=== PATIENT | female | born 1935 | race Caucasian/White ===

== ENCOUNTER 2017-02-23 21:29 | Inpatient (IN) | payer MEDICARE ==
--- NOTE | ~2017-02-23 | DS ---
Discharge Summary [facility] [address] [facility] [place]. [address] NAME: JU MIRANDA : 33 STATUS : DIS IN PAT#: [id number] AGE: 81 ADM/REG DATE : 02/23/17 MR#: [id number] REPORT SERV DATE: 03/11/17 DICTATED BY: SAMREEN GONZALEZ DATE: 03/10/17 REPORT STATUS : Draft TRANSCRIBED BY: MODMann DATE: 03/10/17 Data Collection from hospitalization DISCHARGE DIAGNOSES: 1. 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 2. Hypertension. 3. Diabetes. 4. History of breast cancer. 5. Elevated cholesterol. 6. Chronic back pain. 7. Left bundle-branch block. CONSULTATIONS: JASBIR Greer. Dr. Chavo Chang. PROCEDURES PERFORMED: 1. Exploratory laparotomy with right and transverse colectomy with omentectomy and side-to- side ileal transverse colon anastomosis, 02/23/2017. 2. CT scan of the abdomen and pelvis without contrast, 02/23/2017. 3. CT scan of the chest with contrast and CT scan of the abdomen and pelvis with contrast, 03/01/2017. PATHOLOGY: Submitted as "pink mesenteric nodule" resected portion-adipose tissue. Negative for malignancy, submitted as "right transverse colon and omentum," right colectomy- adenocarcinoma. MEDICATIONS: Aspirin 81 mg daily, Os-Brian plus D 500 mg twice a day, ferrous sulfate 300 mg three times a day, folic acid 1 mg daily, [place] 5/325 one to two tablets every four hours as needed, Hyzaar one tablet daily, multivitamins one tablet daily, fish oil 3000 mg daily, Zofran 4 mg every six hours as needed, Evista 60 mg daily, Zocor 40 mg daily, Bactrim DS one tablet daily, MetroGel one application topically daily. CONDITION AT DISCHARGE: Stable. DISPOSITION: The patient was discharged home on a soft diet with activities as instructed. She would follow up with me, 03/08/2017. HOSPITAL COURSE: This is an 81-year-old female, who presented to the hospital with abdominal pain. She had no significant lab abnormalities, but did have some tenderness in the abdomen. Imaging revealed obstructing tumor mass in the mid transverse colon with marked proximal transverse right colonic dilatation and what was felt to represent metastatic deposits of about 1 cm dimension x2 in the greater omentum. Treatment options were discussed and it was elected to proceed with surgical intervention. She was admitted to the hospital at this time for further evaluation and treatment. Upon admission, she was seen by Dr. Chavo Chang. White blood cell count was 10.4. Liver enzymes were within normal limits. CT scan of the abdomen and pelvis had shown partial small bowel obstruction, but also multiple nodules that were suspicious for metastatic Discharge Summary [place] [id number] [facility] [place] [facility] [address] NAME: JU MIRANDA : 33 STATUS : DIS IN PAT#: [id number] AGE: 81 ADM/REG DATE : 02/23/17 MR#: [id number] REPORT SERV DATE: 03/11/17 DICTATED BY: SAMREEN GONZALEZ DATE: 03/10/17 REPORT STATUS : Draft TRANSCRIBED BY: FIDENCIO DATE: 03/10/17 disease, including a 2 cm mesenteric nodule/lymph node and a 1.77 cm liver lesion. There were two right lower lobe lung nodules up to 1.1 cm in diameter. Supportive care was being provided. IV fluids were started. She was going to be held n.p.o. We were going to check a CA-19-9 and CEA levels. Hydrochlorothiazide was held. IV Rocephin was started for a urinary tract infection. Hemoglobin A1c was going to be checked. The patient was taken to the operating room, where she underwent the above-mentioned procedure. She tolerated this well and there were no complications. On postop day one, she was seen by Dawit Jones for evaluation and management of colon mass. The patient had been found to have bowel obstruction with distal transverse colon mass. This was felt to likely be metastatic disease. She does have a mesenteric nodule, renal lesion, liver lesions, and pulmonary nodules. It was felt that the patient would benefit best with surgical intervention, which had been performed. It was felt that she would need a contrasted CT scan postoperatively. It was felt that she would likely need to undergo a colonoscopy. On the , her creatinine level was 1.03. She had no shortness of breath or chest pain, nausea, or vomiting. Her lungs were clear. Sliding scale insulin was added to her regimen. Her blood sugars were elevated. On 02/26/2017, she was feeling better. She had only minimal pain. She had not passed anything per rectum. Ativan was being given as needed next day. She had no shortness of breath. She had some mild nausea. She still had some confusion. Urine output had increased. BUN and creatinine were decreasing. IV fluids were stopped. Her diet was advanced to full liquids. Phosphorus supplementation was given with potassium supplementation. The Lody catheter was going to be removed. Discharge planning was performed. On 02/28/2017, she had been up all night, having bowel movements. She had mild nausea, but no vomiting. She was not hurting. Oral iron was started. Baseline Hyzaar was restarted. She was evaluated by Physical Therapy. Discharge planning continued. On 03/01/2017, she was wanting to go home. She had no new complaints. She had mild dysuria. CT scan of the abdomen and pelvis with contrast had been performed as well as a CT scan of the chest with contrast. Discharge instructions were given. Due to her improved and stable condition, she was discharged home with the above-stated instructions. Information collected by: Lili Flores I submit the above information as my discharge summary. MONY/FIDENCIO Samreen Gonzalez M.D. / [id number] CC: Jesse Maier M.D. Destin Griffin-Trussell, FNP
--- NOTE | ~2017-02-23 | CN ---
Consultation Report [facility] [address] [place]. [address] NAME: ABBI LORENZO : 33 STATUS : ADM IN PAT#: [id number] AGE: 81 ADM/REG DATE : 02/23/17 MR#: [id number] REPORT SERV DATE: 02/24/17 DICTATED BY: ALINE STANTON DATE: 02/24/17 REPORT STATUS : Draft TRANSCRIBED BY: MODL DATE: 02/24/17 GI CONSULTATION DATE OF CONSULTATION: 02/24/2017 REASON FOR CONSULTATION: Evaluation and management of colon mass. HISTORY OF PRESENT ILLNESS: Ms. Abbi Lorenzo is a very pleasant, 81-year-old, female patient, who was admitted to [facility] on 02/23/2017 when she presented with a chief complaint of extreme abdominal pain, nausea, vomiting. The patient states to me that she began to have extreme abdominal pain the day prior to admission. She has some intermittent nausea and vomiting. She states that she had a very small bowel movement the day prior to extreme abdominal pain onset. She reveals to me that she has had issues with constipation actually for the last two years, which she attributed to Januvia medication initiation. She states that she has had weight loss over the last year of 40 pounds, but states this was intentional. She states that she had a similar episode of pain, similar to this, roughly two weeks ago that resolved on its own. She has been weak and fatigued. She has had a decreased appetite. She had a CT scan done on admission, noncontrasted, which revealed that she had air and fluid dilated distal small bowel and right side of the large bowel up to the distal transverse colon with a transition zone to small caliber more distal large bowel associated with a 4 cm long circumferential infiltrating malignant-appearing lesion. The distal transverse colon lesion was causing a low-grade partial obstruction pattern proximal to the distal transverse colon. She also had associated fluid-filled distended distal ileum suggesting a low-grade partial obstruction of the distal small bowel as well as a 2nd metastatic mesenteric nodule up to 2 cm in diameter in the lower mid abdomen as well as multifocal bilateral near soft tissue attenuation renal lesions as well as indeterminate 1.7 cm hypodense lesion in the right lobe of the liver with raised suspicion for metastatic disease as well as an indeterminate noncalcified pulmonary nodule. I have seen and examined the patient. She has an essentially benign abdominal exam. She is not really tender to palpation. She has very hypoactive bowel sounds throughout her abdomen. I have discussed the case with Dr. Mora, Dr. Walsh, as well as surgeon, Dr. Gonzalez. It will be difficult to perform a traditional bowel prep on this patient to obtain a colonoscopy, and secondary to her obstructive-type pattern, it has been decided that the patient will go to the operating room tonight with Dr. Gonzalez. PAST MEDICAL HISTORY: Positive for breast cancer in 2009 with a left breast lumpectomy, diabetes type 2, elevated cholesterol, hypertension, chronic back pain, left bundle-branch block. PAST SURGICAL HISTORY: Includes a cholecystectomy, left breast lumpectomy, left rotator cuff repair, and ankle surgery. ALLERGIES: SHE HAS NONE. Consultation Report [address] [place]. [address] NAME: ABBI LORENZO : 33 STATUS : ADM IN [facility]#: [id number] AGE: 81 ADM/REG DATE : 02/23/17 MR#: [id number] REPORT SERV DATE: 02/24/17 DICTATED BY: ALINE STANTON DATE: 02/24/17 REPORT STATUS : Draft TRANSCRIBED BY: FIDENCIO DATE: 02/24/17 SOCIAL HISTORY: She still lives independently. No alcohol, tobacco, or illicits. FAMILY HISTORY: Noncontributory from a GI standpoint. HOME MEDICATIONS: Consist of aspirin, calcium with vitamin D, losartan, hydrochlorothiazide, multivitamin, fish oil, Evista, Zocor. REVIEW OF SYSTEMS: A 10-point review of systems was obtained with pertinent positives being addressed in the history of present illness. PERTINENT LABORATORY DATA: Sodium is 139, potassium is 3.1, BUN is 28, creatinine is 1.03. White count 7, hemoglobin is 7.9 with a hematocrit of 25.2, platelets of 196 with an INR of 1.4. Iron level is 21, iron-binding capacity 246, ferritin of 7. CEA is 0.9. CA-19-9 is less than 2. Lactate 1.4. UA with moderate leukocyte esterase, no nitrites. PHYSICAL EXAMINATION: VITAL SIGNS: Temperature is 98.7, pulse 75, respirations 16, blood pressure 132/62. NEUROLOGIC: Reveals an alert, female, sitting up in the bed with no focal deficits being noted. She is awake. She is alert. She is oriented x3. GENERAL: She is cooperative. Nontoxic appearing. HEAD, EARS, EYES, NOSE, AND THROAT: Anicteric. Pupils are equal, round, reactive to light, and accommodation. Normocephalic and atraumatic. NECK: No JVD. No palpable nodes. Supple. LUNGS: Clear anteriorly with normal respiratory effort exhibited. Equal expansion. She has slight decreased breath sounds in the bilateral bases. CARDIOVASCULAR: Regular rate and rhythm. S1 and S2. She has no murmurs, rubs, gallops, S3 or S4 appreciated. ABDOMEN: Soft, round, hypoactive, nontender. No organomegaly, rebound, or guarding elicited on exam. EXTREMITIES: No edema. Normal distal pulses. SKIN: Warm, dry, and intact. ASSESSMENT AND PLAN: 1. Bowel obstruction with a distal transverse colon mass on CT. 2. Likely metastatic disease. She has a mesenteric nodule, renal lesion, liver lesions, and pulmonary nodules. 3. Anemia. 4. Hypokalemia. 5. Diabetes type 2. 6. History of breast cancer in 2009. PLAN: 1. It has been determined that the patient would benefit best and will be taken to the operating room today with Dr. Gonzalez for a bowel resection. Consultation Report [address] [place]. [address] NAME: ABBI LORENZO : 33 STATUS : ADM IN PAT#: [id number] AGE: 81 ADM/REG DATE : 02/23/17 MR#: [id number] REPORT SERV DATE: 02/24/17 DICTATED BY: ALINE STANTON DATE: 02/24/17 REPORT STATUS : Draft TRANSCRIBED BY: FIDENCIO DATE: 02/24/17 2. She will need a contrasted CT after the OR. 3. GI is available if needed. We will sign off. We will be available at any time. I did discuss with the patient, the daughter, and at a later date, she will likely need a colonoscopy. BILLY/FIDENCIO JASBIR Greer / [id number] CC: Jesse Barry M.D.
--- NOTE | ~2017-02-23 | HP ---
History And Physical [address] [place]. [address] NAME: JU MIRANDA : 33 STATUS : ADM IN PAT#: [id number] AGE: 81 ADM/REG DATE : 02/23/17 MR#: [id number] REPORT SERV DATE: 02/24/17 DICTATED BY: SONIA ALANIZ DATE: 02/24/17 REPORT STATUS : Draft TRANSCRIBED BY: MODL DATE: 02/24/17 DATE OF ADMISSION: 02/23/2017 CHIEF COMPLAINT: An 81-year-old female presenting with extreme abdominal pain and vomiting. HISTORY OF PRESENTING ILLNESS: The patient's history was obtained through an interview with the patient and her daughter. Just on the day prior to admission, the patient developed extreme abdominal pain, has had intermittent nausea, and one episode of severe vomiting. She has not had a bowel movement in over 24 hours, and even when she had that bowel movement, it came out "hard" and constipated. She describes abdominal discomfort, a cramping quality diffusely, nonfocal, 9/10 severity that comes in severe waves. She had a similar episode about two weeks ago that resolved spontaneously. For several weeks, the patient has been "easily fatigued" and just feeling weak all over. She may have had worsening of her chronic back pain. No shortness of breath. No fevers or chills. Occasional orthostatic symptoms. About a year ago, the patient was told that she had poorly controlled diabetes and needed to lose weight; so, therefore, she has been trying to modify her activity and diet to lose weight and has been successful losing about 35 to 40 pounds over that period of time. REVIEW OF SYSTEMS: Otherwise, a 14-point review of systems was obtained and was negative. PAST MEDICAL HISTORY: 1. Breast cancer, 2009, seen by Dr. Rui Mariano, Dr. Viramontes, and Dr. Gonzalez with left breast lumpectomy. 2. Diabetes under good control apparently. 3. Elevated cholesterol. 4. Hypertension. 5. Chronic back pain. 6. Left bundle-branch block. 7. No lung disease. 8. Never had a colonoscopy. PAST SURGICAL HISTORY: 1. Cholecystectomy. 2. Left breast lumpectomy. 3. Left rotator cuff repair. 4. Ankle surgery. History And Physical [address] [place]. [address] NAME: JU MIRANDA : 33 STATUS : ADM IN PAT#: [id number] AGE: 81 ADM/REG DATE : 02/23/17 MR#: [id number] REPORT SERV DATE: 02/24/17 DICTATED BY: SONIA ALANIZ DATE: 02/24/17 REPORT STATUS : Draft TRANSCRIBED BY: MODMann DATE: 02/24/17 ALLERGIES: NO KNOWN DRUG ALLERGIES. SOCIAL HISTORY: No tobacco abuse. No alcohol abuse. Lives in [place], [place]. Has been a for 15 years. Lives alone. Has one daughter. FAMILY HISTORY: Father at 55 years of age of a heart attack. Mother at 72 years of age of COPD, but was a heavy smoker. CURRENT MEDICATIONS: Include aspirin 81 mg p.o. daily, calcium vitamin D, losartan/hydrochlorothiazide 100/25 p.o. daily, multivitamin, fish oil, Evista 60 mg p.o. daily, Zocor 40 mg p.o. daily. PHYSICAL EXAMINATION: VITAL SIGNS: Temperature 97.8, pulse 106, blood pressure 127/64, respiratory rate 16, and O2 saturation 98% on room air. GENERAL: A pleasant, cooperative female, but in evidence of some distress secondary to nausea and abdominal discomfort. HEENT: Pupils equal, round, and reactive to light. No conjunctival pallor. No scleral icterus. Nares are patent. Oropharynx is clear of obstruction. Very dry mucous membranes. NECK: Trachea midline. No thyromegaly. LYMPHATIC: No cervical lymphadenopathy. No supraclavicular lymphadenopathy. RESPIRATORY: Clear to auscultation at bases. No wheezes, rales, or rhonchi. Normal respiratory effort. CARDIOVASCULAR: Tachycardic, regular rhythm. No murmurs, rubs, or gallops. No extremity edema is appreciated. ABDOMEN: The patient has somewhat tight abdomen with significant tympanic resonance percussed throughout with distention. Active bowel tones. Tender throughout. Nonfocal. There is guarding. No rebound. No hepatosplenomegaly. DERMATOLOGIC: Warm and dry extremities. No pallor. No cyanosis. PSYCHIATRIC: Normal affect. Good mood. Alert and oriented x3. LABORATORY DATA: White blood cell count 10.4, hemoglobin 10, hematocrit 33, platelets 244. Sodium 139, potassium 3.9, chloride 104, bicarb 23, BUN 30, creatinine 1.44 from baseline creatinine of 1.1, glucose 160, lipase 237. Liver enzymes within normal limits. Urinalysis shows moderate leukocyte esterase with 30 white blood cells and 8 hyaline casts. STUDIES: CT scan of the abdomen shows partial small bowel obstruction, but also multiple nodules that are suspicious for metastatic disease including a 2 cm mesenteric nodule/lymph node, a 1.77 cm liver lesion, and two right lower lung nodules up to 1.1 cm in diameter. ASSESSMENT AND PLAN: 1. Partial small bowel obstruction. Obtain a surgery consult with Dr. Gonzalez. Provide supportive care. Place on IV fluids. Make n.p.o.. Monitor for potential NG tube. 2. 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 Obtain a surgery consult. Consider biopsy? Check CA-19-9. Check CEA. 3. History of breast cancer, 2009. 4. Acute kidney injury. Place on IV fluids. Hold hydrochlorothiazide. History And Physical [address] [address] NAME: JU MIRANDA : 33 STATUS : ADM IN PAT#: [id number] AGE: 81 ADM/REG DATE : 02/23/17 MR#: [id number] REPORT SERV DATE: 02/24/17 DICTATED BY: SONIA ALANIZ DATE: 02/24/17 REPORT STATUS : Draft TRANSCRIBED BY: FIDENCIO DATE: 02/24/17 5. Urinary tract infection. Check urine culture. Place on IV Rocephin. 6. Diabetes. Check hemoglobin A1c. Place on sliding scale insulin. KPL/MODL Sonia Alaniz M.D. / [id number] CC: Jesse Barry M.D.
--- NOTE | ~2017-02-23 | OP ---
Record Of Operation [facility] [address] [place]. 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 PROCEDURE: Exploratory laparotomy with a right and transverse colectomy with omentectomy and a [id number]-dd-wpsh ileal transverse colon anastomosis. ANESTHESIA: General endotracheal. SPECIMEN: The right and transverse colon with the mesentery and the greater omentum. DRAINS: None. COMPLICATIONS: None. CONDITION: Good. INDICATION: Ms. Lorenzo is an exceptionally pleasant 81-year-old, who presented to hospital with abdominal pain. She was noted to have no significant laboratory abnormalities, some tenderness in the abdomen, and imaging revealed obstructing tumor mass in the mid transverse colon with marked proximal transverse right colonic dilatation and what was felt to represent metastatic deposits of about 1 cm dimension x2 in the greater omentum. After review of risks, benefits, options, side effects, reviewing the case with Gastroenterology, we are recommending proceeding with an urgent colectomy for the obstructing process. Also please note that the imaging was an uncontrasted study. We have no obvious evidence of liver metastases on preoperative imaging. There was no evidence of liver metastases at surgery. There is a significant abnormality in the right kidney that is not clear whether it represents a complex cyst versus a neoplasm and is felt that this should be worked up at a later date after the intestinal obstruction has been treated. The patient's family are understanding and agreeable. PROCEDURE IN DETAIL: After being identified in the preop holding, she was brought to the OR and positioned supine. General endotracheal anesthesia was established. A time-out performed. Pneumatic compression hose and Loyd catheter were placed. The abdomen was prepped and draped sterilely. She received 2 g of Ancef intravenously, 500 mg Flagyl intravenously. I made a midline laparotomy centered about the umbilicus extending slightly cephalad. We suctioned clear colorless ascites. Tumor mass was readily evident immediately under the incision and again was an obstructing mass of the mid transverse colon. Palpated the parietal perineum, it was normal. Palpated in the pelvis. There was no mass. Palpated the left and right lobes of liver. There is no mass palpated in the omentum and there were in fact two hard deposits consistent with metastatic disease, one immediately adjacent to Record Of Operation [address] [place]. [address] NAME: JU LORENZO : 31 STATUS : ADM IN PAT#: [id number] AGE: 81 ADM/REG DATE : 02/23/17 MR#: [id number] REPORT SERV DATE: 02/25/17 DICTATED BY: SAMREEN GONZALEZ DATE: 02/25/17 REPORT STATUS : Draft TRANSCRIBED BY: MODMann DATE: 02/25/17 the tumor and one left lateral. We placed the Bookwalter self-retaining retractor system, ran the small bowel, inspected the mesentery, and there is no evident disease otherwise. At this point, we started working on the greater omentum to the patient's left lateral of the small left lateral implant. We dissected through the omentum with the electrocautery down to the colon to include the omental tumor deposits with the specimen. There was a tiny splenic flexure that was left alone. We now entered the lesser sac and the omentum from the greater curve of the stomach, serially clamping with Lary clamps and ligating with 2-0 silk. As we moved towards the hepatic flexure, exposure was difficult due to the distended bowel. At this point, we oriented and identified and elevated the cecum into the operative field. We opened the peritoneal attachments of the infracecal tissues in the terminal ileum and then opened the white line of Toldt since we moved cephalad toward the hepatic flexure reflecting the terminal ileum, cecum, and right colon up into the operative field. It was quite dilated. Carefully stayed on the surface of the bowel and we dissected this hepatic flexure down, dividing the vessels with cautery as well as the tissues. Once the hepatic flexure had been mobilized, we had the duodenum well identified and cleared the duodenum and pancreas. We serially dissected the tissues the with clamps and ligatures following into the lesser sac plane. In this manner, we had mobilized all of the bowel and the greater omentum. At this point, I divided the transverse colon with a GWENDOLYN 75 stapler 6-8 cm distal to the obstructing tumor mass and divided the ileum 6-8 cm proximal to the cecum with a GWENDOLYN stapler. We now dissected through the mesentery of the transverse colon and took the right branch of the transverse colon vessels with the deep mesentery, took the left colic vessels with the deep mesentery, took the ileocolic vessels with the deep mesentery suture ligating on patient's side with 2-0 silk tying on the specimen side with 2-0 silk. We now dissected through the mesentery of the distal ileum with hemostats and 3-0 silks and excised the specimen. Now carefully inspected the entire operative field and we had excellent hemostasis and excellent viable proximal and distal bowel at the point of dissection and division. The patient had a collapsed distal colon that was filled essentially with what I could best describe as milk duds of hard stool. These were readily moveable and I simply milked the milk duds in the transverse colon towards the splenic flexure until I had an adequate length that would allow an anastomosis. The bowel was soft, supple, well perfused, completely empty. There was a distended fluid-filled terminal ileum that presently pink and healthy without congestion. I milked this and placed an atraumatic bowel clamp. We padded off all incision and I felt that the patient was quite satisfactory for a small mcoxz-aa-xzlouizxft colon anastomosis. This anastomosis was done on the antimesenteric small bowel as well as the antimesenteric transverse colon. It was done with outer interrupted seromuscular silk and a running continuous 3-0 Vicryl. It was an airtight and watertight anastomosis without contamination. Bowel clamps were released. The lumen was widely patent and with considerable pressure. There was no leak of air or fluid. At this point, we changed gloves and instruments, proceeded to close the mesenteric defect Record Of Operation [facility] [address] [place]. [address] NAME: JU LORENZO : 31 STATUS : ADM IN [facility]#: [id number] AGE: 81 ADM/REG DATE : 02/23/17 MR#: [id number] REPORT SERV DATE: 02/25/17 DICTATED BY: SAMREEN GONZALEZ DATE: 02/25/17 REPORT STATUS : Draft TRANSCRIBED BY: FIDENCIO DATE: 02/25/17 and the anastomosis with interrupted rjlooe-bx-gihsd sutures of 3-0 silk. We returned the bowel to the anatomic position, the small slip of omentum that was left covered the anastomosis nicely, and we proceeded to close the midline fascia with running single stranded #1 Prolene. The skin was closed with yani. Sterile occlusive dressing was applied. Ms. Lorenzo tolerated her surgery exceptionally well. She has recovered from anesthetic, extubated, and transported to recovery room in good and stable condition. NIRAV/FIDENCIO aSmreen Gonzalez M.D. / [id number] CC: Jesse Maier M.D.
[2017-02-23 19:19] LABS: ASCORBIC ACID (UR NOT ORDER) NEG (NEG); BILIRUBIN, URINE NEGATIVE (NEG); ER URINALYSIS TAT 0 Hrs 09 Mins; KETONE, URINE TRACE MG/DL (NEG); LEUKOCYTE ESTERASE(NOT OR MOD (NEG); NITRITE (URINE) NEG (NEG); WBC (NOT ORDERED) (RFLEX) 30 (0-5)
[2017-02-23 19:23] LABS: BASOPHILS 0.1 %; BASOPHILS ABSOLUTE 0.01 10/3/uL (0.0-0.16); EOSINOPHILS 0 %; IMMATURE GRANULOCYTES 0.1 %; IMMATURE GRANULOCYTES ABSOLUTE 0.01 10/3/uL (0.0-0.11); LYMPHOCYTES 8.5 %; LYMPHOCYTES ABSOLUTE 0.88 10/3/uL (0.67-4.30); MEAN PLATELET VOLUME 10.1 fL (9.2-13.0); MONOCYTES 4.5 %; MONOCYTES ABSOLUTE 0.47 10/3/uL (0.21-1.20); NEUTROPHILS 86.8 %; NEUTROPHILS ABSOLUTE 9.01 10/3/uL (2.02-8.40); RED CELL COUNT 4.31 10/6/uL (4.0-5.6)
[2017-02-23 19:28] LABS: ER CBC TAT 0 Hrs 18 Mins; HEMATOCRIT 33.2 % (36.0-48.0); HEMOGLOBIN 10.3 g/dL (12.0-16.0); MANUAL DIFF NO %; MEAN CORPUSCULAR HEMOGLOB 23.9 pg (26.0-34.0); PLATELET COUNT 244 10/3/uL (150-400); RBC DISTRIBUTION WIDTH 16.2 % (12.0-16.0); WHITE BLOOD CELLS 10.4 10/3/uL (4.5-10.5)
[2017-02-23 19:32] LABS: A/G RATIO 0.8 (0.7-1.9); ALBUMIN 3.5 G/DL (3.5-5.0); ALKALINE PHOSPHATASE 54 U/L (45-117); BUN (BLOOD UREA NITROGEN) 30 MG/DL (6-23); CALCIUM, SERUM 9.7 MG/DL (8.5-10.4); CHLORIDE, SERUM 104 MMOL/L (96-112); CO2 (CARBON DIOXIDE) 23 MMOL/L (24-34); CREATININE 1.44 MG/DL (0.55-1.02); GFR AFRICAN AMERICAN 39 ML/MIN (>=60); GFR NON AFRICAN AMERICAN 33 ML/MIN (>=60); GLOBULIN 4.2 G/DL (2.5-4.1); GLUCOSE, SERUM 160 MG/DL (60-99); POTASSIUM, SERUM 3.9 MMOL/L (3.5-5.3); SGOT(AST) 21 U/L (5-40); SGPT(ALT) 17 U/L (5-65); SODIUM, SERUM 139 MMOL/L (135-148); TOTAL BILIRUBIN 0.6 MG/DL (0-1.2); TOTAL PROTEIN 7.7 G/DL (6.0-8.5)
[2017-02-23] MEDS ORDERED: HYZAAR 100/25 T1 TAB PO (22:20)
[2017-02-23] MEDS ORDERED: EVISTA60 PO (22:20)
[2017-02-23] MEDS ORDERED: ZOCOR40 PO (22:21)
[2017-02-23] MEDS ORDERED: FISH-EPA1000 MG PO (22:21)
[2017-02-23] MEDS ORDERED: MULTIVITAMI1 PO (22:21)
[2017-02-23] MEDS ORDERED: OS500+D PO (22:21)
[2017-02-23] MEDS ORDERED: ASAB PO (22:21)
[2017-02-23] MEDS ORDERED: METROGEL TOP (22:22)
[2017-02-24 07:13] LABS: BASOPHILS 0.1 %; BASOPHILS ABSOLUTE 0.01 10/3/uL (0.0-0.16); EOSINOPHILS 0.1 %; EOSINOPHILS ABSOLUTE 0.01 10/3/uL (0.0-0.53); HEMATOCRIT 25.2 % (36.0-48.0); HEMOGLOBIN 7.9 g/dL (12.0-16.0); IMMATURE GRANULOCYTES 0.3 %; IMMATURE GRANULOCYTES ABSOLUTE 0.02 10/3/uL (0.0-0.11); LYMPHOCYTES 23.7 %; LYMPHOCYTES ABSOLUTE 1.65 10/3/uL (0.67-4.30); MANUAL DIFF NO %; MEAN CORPUS HGB CONC 31.3 g/dL (32.0-36.0); MEAN CORPUSCULAR HEMOGLOB 24.2 pg (26.0-34.0); MEAN CORPUSCULAR VOLUME 77.3 fL (80-100); MEAN PLATELET VOLUME 10.1 fL (9.2-13.0); MONOCYTES 8.2 %; MONOCYTES ABSOLUTE 0.57 10/3/uL (0.21-1.20); NEUTROPHILS 67.6 %; NEUTROPHILS ABSOLUTE 4.71 10/3/uL (2.02-8.40); PLATELET COUNT 196 10/3/uL (150-400); RBC DISTRIBUTION WIDTH 16.4 % (12.0-16.0); RED CELL COUNT 3.26 10/6/uL (4.0-5.6)
[2017-02-24 07:19] LABS: INTERNATIONAL NORMAL RATI 1.4 UNITS (-); PARTIAL THROMBO TIME 32.2 SEC (22.5-37.2); PROTIME (NOT ORD) 16.8 SEC (12.0-14.5)
[2017-02-24 07:41] LABS: ALKALINE PHOSPHATASE 44 U/L (45-117); BUN (BLOOD UREA NITROGEN) 28 MG/DL (6-23); CHLORIDE, SERUM 114 MMOL/L (96-112); CO2 (CARBON DIOXIDE) 22 MMOL/L (24-34); CREATININE 1.03 MG/DL (0.55-1.02); GFR AFRICAN AMERICAN 58 ML/MIN (>=60); GFR NON AFRICAN AMERICAN 50 ML/MIN (>=60); SGOT(AST) 32 U/L (5-40); SGPT(ALT) 17 U/L (5-65); SODIUM, SERUM 139 MMOL/L (135-148); TOTAL BILIRUBIN 0.3 MG/DL (0-1.2)
[2017-02-24 07:42] LABS: A/G RATIO 0.8 (0.7-1.9); ALBUMIN 2.3 G/DL (3.5-5.0); CA-19-9 < 2.0 U/ML (< 37.0); CALCIUM, SERUM 7.2 MG/DL (8.5-10.4); CEA 0.9 NG/ML; GLOBULIN 2.8 G/DL (2.5-4.1); GLUCOSE, SERUM 114 MG/DL (60-99); POTASSIUM, SERUM 3.1 MMOL/L (3.5-5.3); TOTAL PROTEIN 5.1 G/DL (6.0-8.5)
[2017-02-24 12:04] LABS: FERRITIN 7 NG/ML (8-252); IRON BINDING CAPACITY 246 MCG/DL (225-410); IRON, SERUM 21 MCG/DL (35-150)
[2017-02-25 07:15] LABS: HEMATOCRIT 23.4 % (36.0-48.0); HEMOGLOBIN 7.1 g/dL (12.0-16.0); MEAN CORPUS HGB CONC 30.3 g/dL (32.0-36.0); MEAN CORPUSCULAR HEMOGLOB 24.1 pg (26.0-34.0); MEAN CORPUSCULAR VOLUME 79.3 fL (80-100); PLATELET COUNT 172 10/3/uL (150-400); RED CELL COUNT 2.95 10/6/uL (4.0-5.6); WHITE BLOOD CELLS 8.2 10/3/uL (4.5-10.5)
[2017-02-25 07:16] LABS: MANUAL DIFF YES %
[2017-02-25 07:36] LABS: ANISOCYTOSIS 1+ (5-10/OIF) (0-5/OIF); BAND NEUTROPHILS 38 %; BURR CELLS 1+ (3-10/OIF) (0-2/OIF); HYPOCHROMIA 1+ (3-10/OIF) (0-2/OIF); LYMPHOCYTES 5 %; LYMPHOCYTES ABSOLUTE (CALC) 0.41 10/3/uL (0.67-4.30); MICROCYTES 1+ (5-10/OIF) (0-5/OIF); MONOCYTES 8 %; MONOCYTES ABSOLUTE (CALC) 0.66 10/3/uL (0.21-1.20); NEUTROPHILS ABSOLUTE (CALC) 7.13 10/3/uL (2.02-8.40); PLATELET ESTIMATE ADQ (ADEQUATE); SEGMENTED NEUTROPHIL (0) 49 %; TOTAL NUCLEATED CELLS 100
[2017-02-25 07:37] LABS: ELLIPTOCYTES 1+ (3-10/OIF) (0-2/OIF); POLYCHROMASIA 1+ (2-5/OIF) (0-1/OIF); SCHISTOCYTES OCC (0-2/OIF)
[2017-02-25 08:34] LABS: CALCIUM, SERUM 7.3 MG/DL (8.5-10.4); CREATININE 1.14 MG/DL (0.55-1.02); GFR AFRICAN AMERICAN 51 ML/MIN (>=60); GFR NON AFRICAN AMERICAN 44 ML/MIN (>=60)
[2017-02-25 08:37] LABS: GLUCOSE, SERUM 241 MG/DL (60-99)
[2017-02-25 08:43] LABS: BUN (BLOOD UREA NITROGEN) 26 MG/DL (6-23); CHLORIDE, SERUM 114 MMOL/L (96-112); CO2 (CARBON DIOXIDE) 23 MMOL/L (24-34); POTASSIUM, SERUM 4.5 MMOL/L (3.5-5.3); SODIUM, SERUM 145 MMOL/L (135-148)
[2017-02-25 21:54] LABS: HEMATOCRIT 23.6 % (36.0-48.0); HEMOGLOBIN 7.1 g/dL (12.0-16.0)
[2017-02-26 05:18] LABS: BASOPHILS 0 %; EOSINOPHILS 0.3 %; EOSINOPHILS ABSOLUTE 0.03 10/3/uL (0.0-0.53); HEMOGLOBIN 7.3 g/dL (12.0-16.0); IMMATURE GRANULOCYTES 0.2 %; IMMATURE GRANULOCYTES ABSOLUTE 0.02 10/3/uL (0.0-0.11); LYMPHOCYTES 13.8 %; LYMPHOCYTES ABSOLUTE 1.38 10/3/uL (0.67-4.30); MEAN CORPUS HGB CONC 30.4 g/dL (32.0-36.0); MEAN CORPUSCULAR VOLUME 78.9 fL (80-100); MEAN PLATELET VOLUME 9.8 fL (9.2-13.0); MONOCYTES 8.1 %; MONOCYTES ABSOLUTE 0.81 10/3/uL (0.21-1.20); NEUTROPHILS 77.6 %; NEUTROPHILS ABSOLUTE 7.73 10/3/uL (2.02-8.40); PLATELET COUNT 181 10/3/uL (150-400); RBC DISTRIBUTION WIDTH 17.2 % (12.0-16.0); RED CELL COUNT 3.04 10/6/uL (4.0-5.6)
[2017-02-26 05:20] LABS: MANUAL DIFF NO %
[2017-02-26 05:26] LABS: CALCIUM, SERUM 7.1 MG/DL (8.5-10.4); CHLORIDE, SERUM 115 MMOL/L (96-112); CO2 (CARBON DIOXIDE) 23 MMOL/L (24-34); CREATININE 0.87 MG/DL (0.55-1.02); GFR AFRICAN AMERICAN 71 ML/MIN (>=60); GFR NON AFRICAN AMERICAN 62 ML/MIN (>=60); POTASSIUM, SERUM 4.2 MMOL/L (3.5-5.3); SODIUM, SERUM 143 MMOL/L (135-148)
[2017-02-26 05:27] LABS: BUN (BLOOD UREA NITROGEN) 17 MG/DL (6-23); GLUCOSE, SERUM 144 MG/DL (60-99)
[2017-02-27 05:36] LABS: BASOPHILS 0 %; EOSINOPHILS 0.8 %; EOSINOPHILS ABSOLUTE 0.06 10/3/uL (0.0-0.53); HEMATOCRIT 22.4 % (36.0-48.0); IMMATURE GRANULOCYTES 0.3 %; IMMATURE GRANULOCYTES ABSOLUTE 0.02 10/3/uL (0.0-0.11); LYMPHOCYTES 20.6 %; LYMPHOCYTES ABSOLUTE 1.59 10/3/uL (0.67-4.30); MEAN CORPUS HGB CONC 30.4 g/dL (32.0-36.0); MEAN CORPUSCULAR HEMOGLOB 23.6 pg (26.0-34.0); MEAN CORPUSCULAR VOLUME 77.8 fL (80-100); MEAN PLATELET VOLUME 9.6 fL (9.2-13.0); MONOCYTES 7.1 %; MONOCYTES ABSOLUTE 0.55 10/3/uL (0.21-1.20); NEUTROPHILS 71.2 %; NEUTROPHILS ABSOLUTE 5.49 10/3/uL (2.02-8.40); PLATELET COUNT 167 10/3/uL (150-400); RBC DISTRIBUTION WIDTH 17.2 % (12.0-16.0); RED CELL COUNT 2.88 10/6/uL (4.0-5.6); WHITE BLOOD CELLS 7.7 10/3/uL (4.5-10.5)
[2017-02-27 05:50] LABS: HEMOGLOBIN 6.8 g/dL (12.0-16.0)
[2017-02-27 05:53] LABS: MANUAL DIFF NO %
[2017-02-27 05:55] LABS: CALCIUM, SERUM 7.8 MG/DL (8.5-10.4); CHLORIDE, SERUM 115 MMOL/L (96-112); CO2 (CARBON DIOXIDE) 25 MMOL/L (24-34); CREATININE 0.81 MG/DL (0.55-1.02); GFR AFRICAN AMERICAN 78 ML/MIN (>=60); GFR NON AFRICAN AMERICAN 67 ML/MIN (>=60); GLUCOSE, SERUM 140 MG/DL (60-99); POTASSIUM, SERUM 4.2 MMOL/L (3.5-5.3); SODIUM, SERUM 146 MMOL/L (135-148)
[2017-02-27 06:00] LABS: BUN (BLOOD UREA NITROGEN) 9 MG/DL (6-23); PHOSPHORUS, SERUM 0.7 MG/DL (2.5-4.5)
[2017-02-27 12:49] LABS: ASCORBIC ACID (UR NOT ORDER) NEG (NEG); BILIRUBIN, URINE NEGATIVE (NEG); KETONE, URINE NEGATIVE (NEG); LEUKOCYTE ESTERASE(NOT OR NEG (NEG); WBC (NOT ORDERED) (RFLEX) 3 (0-5)
[2017-02-28 08:45] LABS: BASOPHILS 0 %; EOSINOPHILS ABSOLUTE 0.08 10/3/uL (0.0-0.53); HEMATOCRIT 23.5 % (36.0-48.0); HEMOGLOBIN 7.4 g/dL (12.0-16.0); IMMATURE GRANULOCYTES 0.4 %; IMMATURE GRANULOCYTES ABSOLUTE 0.03 10/3/uL (0.0-0.11); LYMPHOCYTES 18.5 %; LYMPHOCYTES ABSOLUTE 1.45 10/3/uL (0.67-4.30); MEAN CORPUS HGB CONC 31.5 g/dL (32.0-36.0); MEAN CORPUSCULAR HEMOGLOB 23.8 pg (26.0-34.0); MEAN CORPUSCULAR VOLUME 75.6 fL (80-100); MEAN PLATELET VOLUME 9.3 fL (9.2-13.0); MONOCYTES 8.2 %; MONOCYTES ABSOLUTE 0.64 10/3/uL (0.21-1.20); NEUTROPHILS 71.9 %; NEUTROPHILS ABSOLUTE 5.64 10/3/uL (2.02-8.40); PLATELET COUNT 201 10/3/uL (150-400); RBC DISTRIBUTION WIDTH 17.2 % (12.0-16.0); RED CELL COUNT 3.11 10/6/uL (4.0-5.6); WHITE BLOOD CELLS 7.8 10/3/uL (4.5-10.5)
[2017-02-28 08:46] LABS: MANUAL DIFF NO %
[2017-02-28 08:56] LABS: BUN (BLOOD UREA NITROGEN) 9 MG/DL (6-23); CALCIUM, SERUM 8.7 MG/DL (8.5-10.4); CHLORIDE, SERUM 107 MMOL/L (96-112); CO2 (CARBON DIOXIDE) 28 MMOL/L (24-34); CREATININE 0.87 MG/DL (0.55-1.02); GFR AFRICAN AMERICAN 71 ML/MIN (>=60); GFR NON AFRICAN AMERICAN 62 ML/MIN (>=60); GLUCOSE, SERUM 126 MG/DL (60-99); POTASSIUM, SERUM 4.2 MMOL/L (3.5-5.3); SODIUM, SERUM 142 MMOL/L (135-148)
[2017-02-28 08:58] LABS: PHOSPHORUS, SERUM 5.3 MG/DL (2.5-4.5)
[2017-03-01 06:45] LABS: BASOPHILS 0.2 %; BASOPHILS ABSOLUTE 0.01 10/3/uL (0.0-0.16); EOSINOPHILS 1.5 %; EOSINOPHILS ABSOLUTE 0.09 10/3/uL (0.0-0.53); HEMOGLOBIN 7.1 g/dL (12.0-16.0); IMMATURE GRANULOCYTES 0.2 %; IMMATURE GRANULOCYTES ABSOLUTE 0.01 10/3/uL (0.0-0.11); LYMPHOCYTES 24.1 %; LYMPHOCYTES ABSOLUTE 1.44 10/3/uL (0.67-4.30); MEAN CORPUS HGB CONC 30.9 g/dL (32.0-36.0); MEAN CORPUSCULAR HEMOGLOB 23.7 pg (26.0-34.0); MEAN CORPUSCULAR VOLUME 76.7 fL (80-100); MEAN PLATELET VOLUME 9.9 fL (9.2-13.0); MONOCYTES 10.6 %; MONOCYTES ABSOLUTE 0.63 10/3/uL (0.21-1.20); NEUTROPHILS 63.4 %; NEUTROPHILS ABSOLUTE 3.79 10/3/uL (2.02-8.40); PLATELET COUNT 201 10/3/uL (150-400); RBC DISTRIBUTION WIDTH 16.9 % (12.0-16.0)
[2017-03-01 06:46] LABS: MANUAL DIFF NO %
[2017-03-01 06:58] LABS: BUN (BLOOD UREA NITROGEN) 8 MG/DL (6-23); CALCIUM, SERUM 9.5 MG/DL (8.5-10.4); CHLORIDE, SERUM 107 MMOL/L (96-112); CO2 (CARBON DIOXIDE) 27 MMOL/L (24-34); CREATININE 0.85 MG/DL (0.55-1.02); GFR AFRICAN AMERICAN 73 ML/MIN (>=60); GFR NON AFRICAN AMERICAN 63 ML/MIN (>=60); GLUCOSE, SERUM 121 MG/DL (60-99); PHOSPHORUS, SERUM 3.7 MG/DL (2.5-4.5); POTASSIUM, SERUM 4.3 MMOL/L (3.5-5.3); SODIUM, SERUM 140 MMOL/L (135-148)
[2017-03-01] MEDS ORDERED: NORCO1 TA1 PO (11:55)
[2017-03-01] MEDS ORDERED: BACTRIM DS1 TAB PO (11:55)
[2017-03-01] MEDS ORDERED: FOLIC PO (11:55)
[2017-03-01] MEDS ORDERED: ZOFRAN4 PO (11:55)
[2017-03-01] MEDS ORDERED: FESO4 PO (11:56)
[2017-04-04] MEDS ORDERED: TUMERIC PO (11:09)
[2017-04-04] MEDS ORDERED: MELATONIN10 M2 PO (11:10)
[2017-04-04] MEDS ORDERED: MOMUD PO (11:10)
== END 2017-03-01 15:49 | disposition home or self-care (01) | DRG 330 ==
LOC: ER 21:29 → 4SO 23:04
PROVIDERS: Emergency Medicine; Internal Medicine; Surgery
PROC: 0DTS0ZZ (ICD-10-PCS; principal; 2017-02-24 15:45)
PROC: 0WUF07Z Supplement Abdominal Wall with Autologous Tissue Substitute, Open Approach (ICD-10-PCS; principal; 2017-02-24 15:45)
PROC: 0DBK0ZZ Excision of Ascending Colon, Open Approach (ICD-10-PCS; principal; 2017-02-24 15:45)
PROC: 0DTL0ZZ Resection of Transverse Colon, Open Approach (ICD-10-PCS; principal; 2017-02-24 15:45)
DX: D37.4 Neoplasm of uncertain behavior of colon (principal); N17.9 Acute kidney failure, unspecified; C78.00 Secondary malignant neoplasm of unspecified lung; C78.6 Secondary malignant neoplasm of retroperitoneum and peritoneum; R18.8 Other ascites; C79.89 Secondary malignant neoplasm of other specified sites; C18.4 Malignant neoplasm of transverse colon; K56.7 Ileus, unspecified; N39.0 Urinary tract infection, site not specified; Z85.3 Personal history of malignant neoplasm of breast; E11.9 Type 2 diabetes mellitus without complications; G89.29 Other chronic pain; M54.9 Dorsalgia, unspecified; E78.00 Pure hypercholesterolemia, unspecified; I44.7 Left bundle-branch block, unspecified; I10 Essential (primary) hypertension; Z79.82 Long term (current) use of aspirin; E87.6 Hypokalemia; D50.0 Iron deficiency anemia secondary to blood loss (chronic); R30.0 Dysuria
CPT/HCPCS: 36415; 71010; 71260; 74000; 74020; 74176; 74177; 80048; 80053; 81001; 82378; 82728; 82962; 83036; 83540; 83550; 83605; 83690; 83735; 84100; 84443; 85014; 85018; 85025; 85610; 85730; 86301; 86850; 86900; 86901; 86920; 87086; 88305; 88309; 88313; 88341; 88342; 93005; 97161-GP; 99285; A9270-GY; G0463; J0690; J1940; J2250; J2370; J2405; J2710; J2795; J3010; J3480; Q9967